=== PATIENT | male | born 1975 | race Caucasian/White ===

== ENCOUNTER 2017-10-17 23:37 | Emergency (ER) | payer OTHER ==
[~2017-10-17] VITALS: Ht 180.3 cm; Wt 86.2 kg
[2017-10-17 23:59] VITALS: Ht 180.3 cm; Wt 86.2 kg
[2017-10-18 00:56] VITALS: BP 125/73
== END 2017-10-18 00:56 | disposition other institution (70) ==
LOC: ED 23:37
DX: K62.89 Other specified diseases of anus and rectum (principal); F90.9 Attention-deficit hyperactivity disorder, unspecified type; Z02.89 Encounter for other administrative examinations

== ENCOUNTER 2017-10-17 23:37 | Emergency (ER) | payer OTHER | END 2017-10-18 00:56 | disposition other institution (70) | LOC: ED 23:37 | DX: Z02.89 Encounter for other administrative examinations (principal) ==

== ENCOUNTER 2018-11-07 04:06 | Emergency (ER) | payer OTHER | END 2018-11-07 06:43 | disposition other institution (70) | LOC: ED 04:06 | DX: Z02.89 Encounter for other administrative examinations (principal) ==

== ENCOUNTER 2018-11-07 04:06 | Emergency (ER) | payer OTHER ==
[~2018-11-07] VITALS: Ht 177.8 cm; Wt 81.6 kg
[2018-11-07 04:08] VITALS: Ht 177.8 cm; Wt 81.6 kg
[2018-11-07 06:43] VITALS: BP 135/81
== END 2018-11-07 06:43 | disposition other institution (70) ==
LOC: ED 04:06
DX: R07.89 Other chest pain (principal); R07.81 Pleurodynia; F90.9 Attention-deficit hyperactivity disorder, unspecified type

== ENCOUNTER 2019-05-09 19:26 | Emergency (ER) | payer OTHER ==
[~2019-05-09] VITALS: Ht 177.8 cm; Wt 764.3 kg
[2019-05-09 19:33] VITALS: Ht 177.8 cm; Wt 764.3 kg
[2019-05-09 21:32] LABS: BASOPHIL % 0.3 % (0-2); PLATELET COUNT 200 x10^3mcL (130-400); RED CELL DISTRIBUTION WIDTH 14.4 % (11.5-14.5)
[2019-05-09 21:44] LABS: CALCIUM 8.5 mg/dL (8.5-10.1); CARBON DIOXIDE 28.2 mmol/L (21-32); CHLORIDE SERUM 107 mmol/L (98-107); CREATININE SERUM 1.2 mg/dL (0.7-1.3); GFR1 > 60 mL/min; GLUCOSE SERUM 106 mg/dL (74-106); POTASSIUM SERUM 4.7 mmol/L (3.5-5.1); SODIUM SERUM 141 mmol/L (136-145)
[2019-05-09 21:48] LABS: ALBUMIN 3.8 g/dL (3.4-5.0); ALKALINE PHOSPHATASE 92 U/L (46-116); ALT/SGPT 24 U/L (16-63); AST/SGOT 32 U/L (15-37); BILIRUBIN TOTAL 0.4 mg/dL (0.20-1.00); TOTAL PROTEIN, SERUM 7.5 g/dL (6.4-8.2)
[2019-05-09 23:11] VITALS: BP 129/87
== END 2019-05-09 23:11 | disposition home or self-care (01) ==
LOC: ED 19:26
PROVIDERS: Emergency Medicine
DX: S42.001A Fracture of unspecified part of right clavicle, initial encounter for closed fracture (principal); S60.811A Abrasion of right wrist, initial encounter; F17.210 Nicotine dependence, cigarettes, uncomplicated; V87.8XXA Person injured in other specified noncollision transport accidents involving motor vehicle (traffic), initial encounter; Y93.55 Activity, bike riding; Y92.413 State road as the place of occurrence of the external cause; Y99.8 Other external cause status
CPT/HCPCS: 90715; 99406; G0480; J1885; J3010; J7030

== ENCOUNTER 2019-07-01 11:13 | Emergency (ER) | payer OTHER | END 2019-07-01 11:58 | disposition other institution (70) | LOC: ED 11:13 | DX: Z02.89 Encounter for other administrative examinations (principal) ==

== ENCOUNTER 2019-07-01 11:13 | Emergency (ER) | payer OTHER ==
[~2019-07-01] VITALS: Ht 177.8 cm; Wt 77.1 kg
[2019-07-01 11:20] VITALS: BP 125/71; Ht 177.8 cm; Wt 77.1 kg
== END 2019-07-01 11:58 | disposition other institution (70) ==
LOC: ED 11:13
DX: S00.81XA Abrasion of other part of head, initial encounter (principal); F17.210 Nicotine dependence, cigarettes, uncomplicated; F12.20 Cannabis dependence, uncomplicated; X58.XXXA Exposure to other specified factors, initial encounter; Y93.89 Activity, other specified; Y92.89 Other specified places as the place of occurrence of the external cause; Y99.8 Other external cause status
CPT/HCPCS: 90715; 99406

== ENCOUNTER 2020-01-16 23:10 | Emergency (ER) | payer OTHER, SELFPAY ==
[~2020-01-16] VITALS: Ht 177.8 cm; Wt 84.8 kg
[2020-01-16 23:42] VITALS: Ht 177.8 cm; Wt 84.8 kg
[2020-01-17 02:47] VITALS: BP 117/66
== END 2020-01-17 02:47 | disposition home or self-care (01) ==
LOC: ED 23:10
DX: M25.522 Pain in left elbow (principal); M25.562 Pain in left knee; R07.89 Other chest pain; Z88.6 Allergy status to analgesic agent; Z59.0 Homelessness; V03.09XA Pedestrian with other conveyance injured in collision with car, pick-up truck or van in nontraffic accident, initial encounter; Y93.89 Activity, other specified; Y92.488 Other paved roadways as the place of occurrence of the external cause; Y99.8 Other external cause status
CPT/HCPCS: Q0092

== ENCOUNTER 2020-07-25 00:59 | Emergency (ER) | payer OTHER, SELFPAY ==
[~2020-07-25] VITALS: Ht 177.8 cm; Wt 80.5 kg
[2020-07-25 01:05] VITALS: Ht 177.8 cm; Wt 80.5 kg
[2020-07-25 01:44] VITALS: BP 132/76
== END 2020-07-25 01:44 | disposition home or self-care (01) ==
LOC: ED 00:59
DX: R43.8 Other disturbances of smell and taste (principal); R53.1 Weakness; Z20.828 Contact with and (suspected) exposure to other viral communicable diseases; Z88.6 Allergy status to analgesic agent
CPT/HCPCS: U0003